=== PATIENT | female | born 1985 | race Caucasian/White ===

== ENCOUNTER → 2017-10-11 | Day surgery (SDC) | payer OTHER ==
[~2017-10-11] VITALS: Ht 160 cm; Wt 67.1 kg
[~2017-10-11] MED LIST: IBUPROFEN800 M1 PO; PRENATAL1 TA2 PO; PROAIR HFA0.09 MG/Ac INH; ZITHROMAX250 M1 PO
--- NOTE | 2017-10-11 12:34 | Operative Report ---
Operative/Inv Procedure Report Surgery Date: 10/11/17 Name of Procedure: D&C Pre-Operative Diagnosis: metromenorrhagia Post-Operative Diagnosis: Same cervical fibroid Estimated Blood Loss: scant Surgeon/Floriculture Teacher: Heide Amaya MD Anesthesia: moderate sedation Operative/Procedure Note Note: She did well patient was taken the operating room placed on position after adequate anesthesia patient placed in dorsolithotomy position the vagina from dorsal fashion bladder was catheterized examination under anesthesia performed at this point CO2 tenaculum was placed on the Intralipid cervix gentle downward traction cervix was dilated to allow for the entry of the cryoprobe at this point I the probe could not be inserted secondary to the angle it was physically around the cervical fibroid I a sharp curettage the endometrial lining was performed sharp curettage and cervical lining performed 2 specimen sent to pathology wants was removed from the vagina patient was awakened from anesthesia and transferred recovery room awake alert counts correct Findings: Normal size uterus with a 4 cm cervical fibroid that did not allow the entry of the probe secondary to the turned the probe would have to make to get into the retroverted uterus normal adnexa bilaterally normal appearing cervix
--- NOTE | 2017-10-11 22:34 | ULTRASOUND REPORT ---
EXAMINATION: US PELVIS/INTRAOPERATIVE ULTRASOUND CLINICAL INDICATION: Menometrorrhagia. Cryoablation in OR with Dr. Amaya. COMPARISON: None TECHNIQUE/FINDINGS: Ultrasound equipment was dedicated to the operating room for the performance of an intraoperative procedure. 2 ultrasound images of the pelvis were acquired and are archived in PACS. Please refer to operative notes for procedural detail. IMPRESSION: Administrative dictation for intraoperative ultrasound and image archiving in PACS. Please refer to operative notes for details.
== END ==
LOC: STS 01:51 → XRY 10:00
DX: N92.1 Excessive and frequent menstruation with irregular cycle (principal); D25.9 Leiomyoma of uterus, unspecified; N71.9 Inflammatory disease of uterus, unspecified
CPT/HCPCS: 76998; J0131; J2250